=== PATIENT | female | born 1965 | race Caucasian/White ===

== ENCOUNTER 2019-02-08 06:54 | Day surgery (SDC) | payer OTHER ==
[~2019-02-08] VITALS: Ht 152.4 cm; Wt 72.9 kg
[~2019-02-08 06:54] MED LIST: LEVO500T48 PO; PANT40TA4 PO; SUCR1TAB56 PO
[2019-02-08 07:40] VITALS: Ht 152.4 cm; Wt 72.9 kg
[2019-02-08 07:58] VITALS: BP 132/58; PULSE 69; RESP 18
[2019-02-08] MEDS ORDERED: FENTAnyl 50 MCG/ML VIAL ONE (09:57)
[2019-02-08] MEDS ORDERED: MIDAZOLAM 1 MG/ML 2 ML INJ ONE ×3 (09:57)
[2019-02-08 10:12] VITALS: BP 121/66; PULSE 68; RESP 18
== END 2019-02-08 11:58 | disposition home or self-care (01) ==
LOC: GIL 06:54
PROVIDERS: ATTEND Internal Medicine Gastroenterology
DX: K92.1 Melena (principal); K29.30 Chronic superficial gastritis without bleeding; K64.8 Other hemorrhoids; K44.9 Diaphragmatic hernia without obstruction or gangrene; K21.9 Gastro-esophageal reflux disease without esophagitis
CPT/HCPCS: 43239; 45378; 88305; 88312; J2250; J3010; Z7610

== ENCOUNTER 2019-04-18 02:09 | Emergency (ER) | payer OTHER ==
[~2019-04-18] VITALS: Ht 152.4 cm; Wt 74.7 kg
[2019-04-18 02:14] VITALS: Ht 152.4 cm; Wt 74.7 kg
--- NOTE | 2019-04-18 04:44 | ERD ---
ER Documentation Chief Complaint Chief Complaint Generalized body weakness & fatigue HPI Is a 54-year-old female comes in with generalized body weakness and fatigue. She says she feels as if she sits down a lot at work. She denies any focal neurologic complaints. Denies chest pain nausea vomiting fevers chills but says is been doing this problem on and off for the past year. There is no change in progression or severity tonight. ROS All systems reviewed and are negative except as per history of present illness. Medications Home Meds Reported Medications [None] No Conflict Check 02/08/19 Allergies Allergies: Coded Allergies: Penicillins (Unverified Allergy, Unknown, 09/08/16) PMhx/Soc History of Surgery: Yes (HYSTRECTOMY, CHOLECYSTECTOMY) Anesthesia Reaction: No Hx Neurological Disorder: No Hx Respiratory Disorders: No Hx Cardiac Disorders: No Hx Psychiatric Problems: No Hx Miscellaneous Medical Probl: No Hx Alcohol Use: No Hx Substance Use: No Hx Tobacco Use: No Smoking Status: Never smoker Physical Exam Vitals Vital Signs Date Temp Pulse Resp B/P (MAP) Pulse Ox O2 O2 Flow FiO2 Time Delivery Rate 04/18/19 76 18 132/68 100 Room Air 04:00 (89) 04/18/19 84 20 140/80 99 Room Air 03:01 (100) 04/18/19 98.2 91 18 179/81 100 02:14 (113) Physical Exam Const: No acute distress Head: Atraumatic Eyes: Normal Conjunctiva ENT: Normal External Ears, Nose and Mouth. Neck: Full range of motion. No meningismus. Resp: Clear to auscultation bilaterally Cardio: Regular rate and rhythm, no murmurs Abd: Soft, non tender, non distended. Normal bowel sounds Skin: No petechiae or rashes Back: No midline or flank tenderness Ext: No cyanosis, or edema Neur: Awake and alert Psych: Normal Mood and Affect Result Diagram: 04/18/19 0314 04/18/19 0314 Results 24 hrs Laboratory Tests Test 04/18/19 03:14 White Blood Count 5.6 10^3/ul Red Blood Count 4.37 10^6/ul Hemoglobin 13.5 g/dl Hematocrit 40.1 % Mean Corpuscular Volume 91.8 fl Mean Corpuscular Hemoglobin 30.9 pg Mean Corpuscular Hemoglobin Concent 33.7 g/dl Red Cell Distribution Width 12.3 % Platelet Count 267 10^3/UL Mean Platelet Volume 10.9 fl Immature Granulocytes % 0.400 % Neutrophils % 55.8 % Lymphocytes % 33.8 % Monocytes % 7.9 % Eosinophils % 1.6 % Basophils % 0.5 % Nucleated Red Blood Cells % 0.0 /100WBC Immature Granulocytes # 0.020 10^3/ul Neutrophils # 3.1 10^3/ul Lymphocytes # 1.9 10^3/ul Monocytes # 0.4 10^3/ul Eosinophils # 0.1 10^3/ul Basophils # 0.0 10^3/ul Nucleated Red Blood Cells # 0.0 10^3/ul Sodium Level 144 mmol/L Potassium Level 3.9 mmol/L Chloride Level 107 mmol/L Carbon Dioxide Level 28 mmol/L Anion Gap 9 Blood Urea Nitrogen 19 mg/dl Creatinine 0.65 mg/dl Est Glomerular Filtrat Rate mL/min > 60 mL/min Glucose Level 115 mg/dl Calcium Level 9.3 mg/dl Total Bilirubin 0.4 mg/dl Direct Bilirubin 0.00 mg/dl Indirect Bilirubin 0.4 mg/dl Aspartate Amino Transf (AST/SGOT) 31 IU/L Alanine Aminotransferase (ALT/SGPT) 50 IU/L Alkaline Phosphatase 103 IU/L Troponin I < 0.012 ng/ml B-Type Natriuretic Peptide 25 PG/ML Total Protein 8.4 g/dl Albumin 4.4 g/dl Globulin 4.00 g/dl Albumin/Globulin Ratio 1.10 Procedures/MDM EKG: Rate/Rhythm: [Normal Sinus Rhythm] QRS, ST, T-waves: [No changes consistent w/ acute ischemia] Impression: [No evidence of ischemia or arrhythmia] Chest X-ray 1V Interpreted by me: Soft Tissue: No acute abnormalities Bones: No acute abnormalities Mediastinum/Cardiac Silhouette/Lungs: [No acute abnormalities] Medical decision making: This 52 female neurosensory generalized weakness. At this point she is well-appearing. No obvious and overt signs of life- threatening illness. At this point she is clinically stable for trial of outpatient management of advised that she follow-up with her primary care physician. Departure Diagnosis: Primary Impression: Fatigue Fatigue type: unspecified Qualified Codes: R53.83 - Other fatigue Condition: Stable Patient Instructions: Generalized Weakness ALEX HERNANDEZ Apr 18, 2019 04:44
[2019-04-18 04:54] VITALS: BP 129/70; PULSE 71; RESP 20
== END 2019-04-18 04:54 | disposition home or self-care (01) ==
LOC: E/R 02:09
DX: R53.83 Other fatigue (principal)
CPT/HCPCS: 36415; 71045; 80053; 83880; 84484; 85025; 93005; Z7502